=== PATIENT | female | born 1995 | race African-American/Black ===

== ENCOUNTER 2018-10-11 14:53 | Inpatient (IN) ==
[2018-10-11] MEDS ORDERED: oxyCODONE/ACETAMINOPHEN 5-325 MG TABLET PO PRN (15:04)
[2018-10-11] MEDS ORDERED: DINOPROSTONE VAG GEL 10 MG SYRINGE VAG ONE (15:07)
[2018-10-11] MEDS ORDERED: OXYTOCIN/LR 20 UNIT/1,000 ML BAG IV SCH (15:30)
[2018-10-11] MEDS: LACTATED RINGERS 1,000 ML IV SCH (15:38)
[2018-10-11 15:42] LABS: Basophils % 0.1 % (0.0-0.8); Eosinophils # 0.1 10*3/uL (0.0-0.87); Eosinophils % 0.7 % (0.00-10.9); Hematocrit 31.1 VOL% (35.7-47.0); Hemoglobin 9.4 GM/DL (12.0-16.0); Immature Granulocytes % 0.4 %; Immature Granulocytes Absolute 0.06 #; Lymphocytes # 2.7 10*3/uL (1.4-4.0); Lymphocytes % 17.5 % (21.3-54.2); Mean Corpuscular HGB Conc 30.2 GM/DL (32-36); Mean Corpuscular Hemoglobin 26 PG (27-34); Mean Corpuscular Volume 85.7 FL (87-102); Mean Platelet Volume 12.1 FL (9.6-12.0); Monocytes # 0.9 10*3/uL (0.11-0.8); Monocytes % 6.1 % (1.7-12.7); Neutrophils # 11.4 10*3/uL (1.4-7.4); Neutrophils % 75.2 % (38.7-73.9); Platelet Count 310 T/CUMM (130-400); Red Blood Count 3.63 MC/CUMM (3.8-5.5); Red Cell Distribution Width 14.9 % (9.3-17.3); White Blood Count 15.2 T/CUMM (4-12)
[2018-10-11 16:12] LABS: Alanine Aminotransferase 13 U/L (13-56); Albumin 2.3 G/DL (3.4-5.0); Alkaline Phosphatase 119 U/L (45-117); Aspartate Amino Transferase 17 U/L (0-37); Bilirubin,Total < 0.39 MG/DL (0.2-1.0); Blood Urea Nitrogen 11 MG/DL (7-18); Calcium 8.6 MG/DL (8.5-10.1); Glucose 77 MG/DL (74-106); Osmolality,Calculated 272.7 MOS/KG (273-304); Potassium 4.3 MMOL/L (3.5-5.1); Sodium 138 MMOL/L (136-145); Total Protein 6.8 G/DL (6.4-8.3)
[2018-10-11] MEDS ORDERED: CITRIC ACID/SODIUM CITRATE 30 ML UDCUP PO ONE (20:30)
[2018-10-11] MEDS ORDERED: FAMOTIDINE 20 MG/2 ML VIAL IV ONE (20:30)
[2018-10-11] MEDS: MEPERIDINE 50 MG/1 ML VIAL IV PRN (23:58)
[2018-10-11] MEDS: ONDANSETRON 4 MG/2 ML VIAL IV PRN (23:58)
[2018-10-12] MEDS ORDERED: OXYTOCIN/LR 20 UNIT/1,000 ML BAG IV SCH (02:00)
[2018-10-12] MEDS: MEPERIDINE 50 MG/1 ML VIAL IV PRN (05:27)
[2018-10-12] MEDS: ONDANSETRON 4 MG/2 ML VIAL IV PRN (05:30)
[2018-10-12] MEDS: LACTATED RINGERS 1,000 ML IV SCH ×3 (05:32→12:11)
[2018-10-12] MEDS ORDERED: ePHEDrine 50 MG/ML AMP ONE (07:11)
[2018-10-12] MEDS ORDERED: FAMOTIDINE 20 MG/2 ML VIAL IV ONE (07:30)
[2018-10-12] MEDS ORDERED: CITRIC ACID/SODIUM CITRATE 30 ML UDCUP PO ONE (07:30)
[2018-10-12] MEDS: fentaNYL 2 MCG/ROPIV 0.2% EPID 100 ML EPIDURAL SCH ×2 (08:39→16:54)
[2018-10-12 09:54] LABS: Apearance,Urine CLEAR (Clear); Bilirubin,Urine Negative (Negative); Blood, Urine Negative (Negative); Glucose,Urine (UA) Negative (Negative); Ketones,Urine Negative (Negative); Nitrite,Urine Negative (Negative); Protein,Urine Negative; RBC,Urine 1 /HPF (0-4); Squamous Epithelial Cell,Urine Occasional /HPF (0-10); Urine Color Yellow (Yellow); Urine Specific Gravity 1.018 (1.001-1.035); Urine Urobilinogen < 2.0 EU/DL (0.2-1.0); WBC,Urine <1 /HPF (0-6)
[2018-10-12] MEDS ORDERED: ceFAZolin 3,000 MG in SYRINGE 1 EACH IV ONE (17:46)
[2018-10-12] MEDS ORDERED: OXYTOCIN 10 UNIT/ML VIAL IM ONE (18:00)
[2018-10-12] MEDS ORDERED: OXYTOCIN/LR 30 UNIT/1,000 ML BAG IV ONE (18:00)
[2018-10-12] MEDS ORDERED: ACETAMINOPHEN 325 MG TABLET PO PRN (19:34)
[2018-10-12] MEDS ORDERED: ONDANSETRON 4 MG/2 ML VIAL IV PRN (19:34)
[2018-10-12] MEDS ORDERED: RHO(D) IMMUNE GLOBULIN 300 MCG SYRINGE IM ONE (19:34)
[2018-10-12] MEDS ORDERED: OXYTOCIN/LR 20 UNIT/1,000 ML BAG IV ONE (19:34)
[2018-10-12] MEDS ORDERED: MIDAZOLAM 2 MG/2 ML VIAL ONE (19:36)
[2018-10-12] MEDS ORDERED: SODIUM BICARBONATE 2.4 MEQ/5 ML VIAL ONE (19:37)
[2018-10-12] MEDS ORDERED: LIDOCAINE MPF 2% /EPI 20 ML VIAL ONE (19:37)
[2018-10-12] MEDS ORDERED: PHENYLEPHRINE 1 MG/10 ML SYRINGE IV ONE (19:37)
[2018-10-12] MEDS ORDERED: LACTATED RINGERS 1,000 ML IV SCH (20:00)
[2018-10-12 20:19] LABS: Cord Arterial Blood HCO3 22.5 MMOL/L
[2018-10-12 20:23] LABS: Cord Venous Blood HCO3 21.7 MMOL/L; Cord Venous Blood PCO2 37.6 MMHG; Cord Venous Blood PO2 47.3 MMHG
[2018-10-12] MEDS: IBUPROFEN 800 MG TABLET PO PRN (20:55)
[2018-10-13] MEDS: fentaNYL 2 MCG/ROPIV 0.2% EPID 100 ML EPIDURAL SCH (01:59)
[2018-10-13] MEDS: LACTATED RINGERS 1,000 ML IV SCH ×2 (01:59)
[2018-10-13] MEDS: ceFAZolin 1,000 MG in SYRINGE 1 EACH IV SCH ×2 (02:12→10:00)
[2018-10-13] MEDS: DOCUSATE SODIUM 100 MG CAPSULE PO SCH ×3 (04:08→21:20)
[2018-10-13 06:15] LABS: Basophils % 0.2 % (0.0-0.8); Eosinophils % 0.2 % (0.00-10.9); Hematocrit 27.3 VOL% (35.7-47.0); Hemoglobin 8.6 GM/DL (12.0-16.0); Immature Granulocytes % 0.6 %; Immature Granulocytes Absolute 0.11 #; Lymphocytes # 2.4 10*3/uL (1.4-4.0); Lymphocytes % 13.1 % (21.3-54.2); Mean Corpuscular HGB Conc 31.5 GM/DL (32-36); Mean Corpuscular Hemoglobin 27 PG (27-34); Mean Corpuscular Volume 84.5 FL (87-102); Mean Platelet Volume 11.6 FL (9.6-12.0); Monocytes % 5.2 % (1.7-12.7); Neutrophils # 14.7 10*3/uL (1.4-7.4); Neutrophils % 80.7 % (38.7-73.9); Platelet Count 254 T/CUMM (130-400); Red Blood Count 3.23 MC/CUMM (3.8-5.5); White Blood Count 18.2 T/CUMM (4-12)
[2018-10-13] MEDS: METOCLOPRAMIDE 10 MG TABLET PO SCH ×3 (08:08→23:17)
[2018-10-13] MEDS: MAGNESIUM HYDROXIDE SUSP 30 ML UDCUP PO PRN ×2 (08:08→21:20)
[2018-10-13] MEDS: SIMETHICONE CHEW 80 MG TABLET PO PRN (08:08)
[2018-10-13] MEDS: MULTIVITAMIN (PRENATAL) TABLET PO SCH (08:58)
[2018-10-13] MEDS: IBUPROFEN 800 MG TABLET PO PRN ×2 (09:28→17:34)
[2018-10-13] MEDS: oxyCODONE/ACETAMINOPHEN 5-325 MG TABLET PO PRN ×2 (09:35→17:34)
[2018-10-13] MEDS: FERROUS SULFATE 325 MG TABLET PO SCH ×2 (10:58→21:20)
[2018-10-13] MEDS ORDERED: METOCLOPRAMIDE 10 MG TABLET PO SCH (14:00)
[2018-10-14] MEDS: oxyCODONE/ACETAMINOPHEN 5-325 MG TABLET PO PRN ×2 (04:34→17:27)
[2018-10-14] MEDS: FERROUS SULFATE 325 MG TABLET PO SCH ×2 (08:03→20:56)
[2018-10-14] MEDS: METOCLOPRAMIDE 10 MG TABLET PO SCH ×3 (08:03→22:26)
[2018-10-14] MEDS: MAGNESIUM HYDROXIDE SUSP 30 ML UDCUP PO PRN ×3 (08:03→22:25)
[2018-10-14] MEDS: DOCUSATE SODIUM 100 MG CAPSULE PO SCH ×2 (08:03→20:56)
[2018-10-14] MEDS: MULTIVITAMIN (PRENATAL) TABLET PO SCH (08:03)
[2018-10-14] MEDS: SIMETHICONE CHEW 80 MG TABLET PO PRN ×3 (08:03→22:26)
[2018-10-14] MEDS: IBUPROFEN 800 MG TABLET PO PRN ×2 (08:07→17:26)
[2018-10-15] MEDS: oxyCODONE/ACETAMINOPHEN 5-325 MG TABLET PO PRN (06:04)
[2018-10-15] MEDS: METOCLOPRAMIDE 10 MG TABLET PO SCH ×2 (06:04→16:18)
[2018-10-15 08:18] VITALS: BP 107/67
[2018-10-15] MEDS: DOCUSATE SODIUM 100 MG CAPSULE PO SCH (09:12)
[2018-10-15] MEDS: MULTIVITAMIN (PRENATAL) TABLET PO SCH (09:12)
[2018-10-15] MEDS: FERROUS SULFATE 325 MG TABLET PO SCH (09:12)
== END 2018-10-15 15:00 | disposition home or self-care (01) | DRG 788 ==
LOC: N.LDOUT 14:53 → N.LD 14:55 → N.OB 10-12 22:05
PROVIDERS: ADMIT Obstetrics & Gynecology; ATTEND Obstetrics & Gynecology
PROC: LDCSECT (ICD-10-PCS; 2018-10-12 18:00)